=== PATIENT | female | born 1990 | race American Indian/Alaskan Native ===

== ENCOUNTER 2018-01-11 23:09 | Emergency (ER) | payer SELFPAY ==
[2018-01-11 23:46] VITALS: BP 133/86
[2018-01-12 00:57] LABS: Basophils % (Auto) 0.6 % (0.0-1.8); Eosinophils # (Auto) 0.1 K/mm3 (0.0-0.4); Eosinophils % (Auto) 1.1 % (0.0-4.3); Hematocrit 37.7 % (30.3-42.9); Hemoglobin 12.2 gm/dl (10.1-14.3); Lymphocytes # (Auto) 3.8 K/mm3 (1.2-5.4); Lymphocytes % (Auto) 52.9 % (13.4-35.0); Mean Corpuscular HGB Conc 32 % (30-34); Mean Corpuscular Hemoglobin 28 pg (28-32); Mean Corpuscular Volume 87 fl (79-97); Monocytes # (Auto) 0.5 K/mm3 (0.0-0.8); Monocytes % (Auto) 7.7 % (0.0-7.3); Platelet Count 288 K/mm3 (140-440); Red Blood Count 4.34 M/mm3 (3.65-5.03); Red Cell Distribution Width 13.4 % (13.2-15.2)
[2018-01-12 01:20] LABS: Alanine Aminotransferase 8 units/L (7-56); Albumin 3.9 g/dL (3.9-5); BUN/Creatinine Ratio 15; Blood Urea Nitrogen 9 mg/dL (7-17); Calcium 9.4 mg/dL (8.4-10.2); Hemolysis Index 2
[2018-01-12 02:52] LABS: Hyaline Casts,Urine 1 /LPF; Mucus,Urine FEW /HPF
[2018-01-12 02:53] LABS: Bilirubin,Urine NEG (Negative); Blood,Urine NEG (Negative); Color,Urine Yellow (Yellow); Protein,Urine <15 mg/dL mg/dL (Negative); Urobilinogen,Urine < 2.0 mg/dL (<2.0)
[2018-01-12 03:02] LABS: HCG Qualitative,Urine Negative (Negative)
--- NOTE | 2018-01-12 03:11 | Emergency Department Report ---
HPI - General Chief Complaint: Syncope Time Seen by Provider: 01/12/18 02:51 - HPI HPI: Room 22 The patient is a 27-year-old female presenting with a chief complaint of syncope. Patient states she's been dizzy all of her life but has never been given a diagnosis. The patient states this evening at 19:00 all washing dishes both her hands began shaking and she again felt dizzy and then had a syncopal episode. Patient denied ever having palpitations, chest pain or shortness of breath. Patient denies having headache. Patient denies previous episodes of syncope. Patient denies nausea vomiting or diarrhea. Patient denies fever. Patient denies any recent flights or long car trips. Patient is currently asymptomatic and states she feels normal Location: [See above] Duration: [See above] Quality: [See above] Severity: Moderate Modifying factors: [see above] Context: [see above] Mode of transportation: [not driving] ED Past Medical Hx - Past Medical History Previous Medical History?: No - Surgical History Past Surgical History?: No - Family History Family history: no significant - Social History Smoking Status: Never Smoker Substance Use Type: None (denies illicit drug use) - Medications Home Medications: Home Medications Medication Instructions Recorded Confirmed Last Taken Type Meclizine [Antivert] 25 mg PO TID PRN #20 tablet 01/12/18 Unknown Rx ED Review of Systems ROS: Stated complaint: PASSED OUT Other details as noted in HPI Constitutional: denies: fever Eyes: denies: eye pain ENT: denies: throat pain Respiratory: denies: shortness of breath Cardiovascular: denies: chest pain, palpitations Gastrointestinal: denies: abdominal pain, nausea, vomiting, diarrhea Genitourinary: denies: dysuria Musculoskeletal: denies: back pain Neurological: other (syncope). denies: headache Physical Exam - Physical Exam Vital Signs: Vital Signs 01/11/18 23:39 Temperature 98.9 F Pulse Rate 86 Respiratory 18 Rate Blood Pressure 133/86 O2 Sat by Pulse 98 Oximetry Physical Exam: GENERAL: The patient is well-developed well-nourished female lying on stretcher not appearing to be in acute distress. [] HEENT: Normocephalic. Atraumatic. Extraocular motions are intact. Patient has moist mucous membranes. NECK: Supple. No meningitic signs are noted. Trachea midline CHEST/LUNGS: Clear to auscultation. There is no respiratory distress noted. HEART/CARDIOVASCULAR: Regular. There is no tachycardia. There is no gallop rub or murmur. ABDOMEN: Abdomen is soft, nontender. Patient has normal bowel sounds. There is no abdominal distention. SKIN: There is no rash. There is no edema. There is no diaphoresis. NEURO: The patient is awake, alert, and oriented. The patient is cooperative. The patient has no focal neurologic deficits. The patient has normal speech. Cranial nerves II through XII grossly intact, no drift MUSCULOSKELETAL: There is no evidence of acute injury. ED Course Vital Signs 01/11/18 23:39 Temperature 98.9 F Pulse Rate 86 Respiratory 18 Rate Blood Pressure 133/86 O2 Sat by Pulse 98 Oximetry - Reevaluation(s) Reevaluation #1: 01/12/18 04:05 Patient remains asymptomatic currently. Updated on workup results ED Medical Decision Making - Lab Data Result diagrams: 01/12/18 00:04 01/12/18 00:04 Laboratory Tests 01/12/18 01/12/18 01/12/18 00:04 00:04 01:58 WBC 7.1 RBC 4.34 Hgb 12.2 Hct 37.7 MCV 87 MCH 28 MCHC 32 RDW 13.4 Plt Count 288 Lymph % (Auto) 52.9 H Falls % (Auto) 7.7 H Eos % (Auto) 1.1 Baso % (Auto) 0.6 Lymph # 3.8 Falls # 0.5 Eos # 0.1 Baso # 0.0 Seg Neutrophils % 37.7 L Seg Neutrophils # 2.7 D-Dimer Sodium 138 Potassium 4.0 Chloride 102.7 Carbon Dioxide 23 Anion Gap 16 BUN 9 Creatinine 0.6 L Estimated GFR > 60 BUN/Creatinine Ratio 15 Glucose 89 Calcium 9.4 Total Bilirubin < 0.20 AST 14 ALT 8 Alkaline Phosphatase 70 Total Creatine Kinase CK-MB (CK-2) CK-MB (CK-2) Rel Index Troponin T Total Protein 7.1 Albumin 3.9 Albumin/Globulin Ratio 1.2 Urine Color Yellow Urine Turbidity Clear Urine pH 6.0 Ur Specific [place] 1.027 Urine Protein <15 mg/dl Urine Glucose (UA) Neg Urine Ketones Neg Urine Blood Neg Urine Nitrite Neg Urine Bilirubin Neg Urine Urobilinogen < 2.0 Ur Leukocyte Esterase Neg Urine WBC (Auto) 1.0 Urine RBC (Auto) 2.0 U Epithel Cells (Auto) 1.0 Hyaline Casts 1 Urine Mucus Few Urine HCG, Qual Negative 01/12/18 01/12/18 03:03 03:03 WBC RBC Hgb Hct MCV MCH MCHC RDW Plt Count Lymph % (Auto) Falls % (Auto) Eos % (Auto) Baso % (Auto) Lymph # Falls # Eos # Baso # Seg Neutrophils % Seg Neutrophils # D-Dimer 227.42 Sodium Potassium Chloride Carbon Dioxide Anion Gap BUN Creatinine Estimated GFR BUN/Creatinine Ratio Glucose Calcium Total Bilirubin AST ALT Alkaline Phosphatase Total Creatine Kinase 87 CK-MB (CK-2) 1.2 CK-MB (CK-2) Rel Index 1.3 Troponin T < 0.010 Total Protein Albumin Albumin/Globulin Ratio Urine Color Urine Turbidity Urine pH Ur Specific [place] Urine Protein Urine Glucose (UA) Urine Ketones Urine Blood Urine Nitrite Urine Bilirubin Urine Urobilinogen Ur Leukocyte Esterase Urine WBC (Auto) Urine RBC (Auto) U Epithel Cells (Auto) Hyaline Casts Urine Mucus Urine HCG, Qual - EKG Data -: EKG Interpreted by Ri EKG shows normal: sinus rhythm Rate: normal - EKG Data When compared to previous EKG there are: previous EKG unavailable Interpretation: normal EKG - Radiology Data Radiology results: report reviewed (CT head) CT head (read by radiologist)-no acute intracranial abnormality - Differential Diagnosis vasovagal syncope, vertigo, PE, ACS, rhabdomyolysis, dysrhythmia Critical care attestation.: If time is entered above; I have spent that time in minutes in the direct care of this critically ill patient, excluding procedure time. ED Disposition Clinical Impression: Dizziness, Syncope Disposition: DC-01 TO HOME OR SELFCARE Is pt being admited?: No Does the pt Need Aspirin: No Condition: Stable Instructions: Syncope (ED), Vertigo (ED) Additional Instructions: Return to the emergency department immediately should you develop worsening symptoms, fever, inability to tolerate food or liquid or any other concerns. Prescriptions: Meclizine [Antivert] 25 mg PO TID PRN #20 tablet PRN Reason: Vertigo Referrals: BAKARI MELTON MD [Staff Physician] - [facility] (Dr. Melton is a neurologist. Please follow up with him for further evaluation) ERIC RINCON MD [Primary Care Provider] - [facility] (Dr. Rincon is a primary physician. Please follow up with him to be established as a patient) Time of Disposition: 04:08
[2018-01-12] MEDS ORDERED: ANTIVERT PO ONE (03:33)
[2018-01-12 03:37] LABS: Creatine Kinase MB 1.2 ng/mL (0.0-4.0)
--- NOTE | 2018-01-12 03:59 | Cat Scan Report ---
FINAL REPORT EXAM: CT HEAD/BRAIN WO CON HISTORY: syncope next TECHNIQUE: Routine axial imaging was obtained of the brain without IV contrast. FINDINGS: There is no evidence of acute stroke or hemorrhage. The ventricular system is appropriate in size and is symmetric. The visualized sinuses are clear. The mastoid air cells are well pneumatized. The calvarium appears intact IMPRESSION: No acute intracranial process.
== END 2018-01-12 04:39 | disposition home or self-care (01) ==
LOC: ED 23:09
DX: R55 Syncope and collapse (principal)
CPT/HCPCS: 36415; 70450; 80053; 81001; 81025; 82550; 82553; 84484; 85025; 85379; 93005; 93010; 99284

== ENCOUNTER 2019-10-05 10:55 | Emergency (ER) | payer SELFPAY ==
--- NOTE | 2019-10-05 14:48 | Emergency Department Report ---
ED Abdominal Pain HPI - General Chief Complaint: Abdominal Pain Stated Complaint: DIZZY/STOMACH CRAMPING Time Seen by Provider: 10/05/19 14:16 Source: patient Mode of arrival: Ambulatory Limitations: No Limitations - History of Present Illness Initial Comments: This is a 29-year-old Afro-British female who presents to the emergency room with abdominal cramping, vomiting, and headache intermittently for 2 weeks. Patient reports her last menstrual period was 08/03/2019, A0. Patient states she took a test on September 10 one this morning and both were negative. She also states her children have been seek impossibly caught something from them. Patient also reports some diarrhea this morning 2 times. She denies dizziness, dyspnea, chest pain, palpitations, shortness of breath, chills, weakness, urinary frequency, urgency, dysuria, or vaginal discharge. MD Complaint: abdominal pain Onset/Timin -: week(s) Location: diffuse Radiation: none Migration to: no migration Severity: mild Severity scale (0 -10): 3 Quality: cramping Consistency: intermittent Improves With: nothing Worsens With: nothing Context: sick contacts Associated Symptoms: nausea, vomiting, diarrhea, fever, chills. denies: constipation, dysuria, hematemesis, hematochezia, melena, hematuria, anorexia, syncope Treatments Prior to Arrival: NSAIDs - Related Data Previous Rx's Medication Instructions Recorded Last Taken Type Meclizine [Antivert] 25 mg PO TID PRN #20 tablet 01/12/18 Unknown Rx Ondansetron [Zofran Odt] 4 mg PO Q8HR PRN #20 tab.rapdis 10/05/19 Unknown Rx Allergies Allergy/AdvReac Type Severity Reaction Status Date / Time No Known Allergies Allergy Verified 10/05/19 10:58 ED Review of Systems ROS: Stated complaint: DIZZY/STOMACH CRAMPING Other details as noted in HPI Constitutional: chills. denies: fever ENT: denies: ear pain, throat pain Respiratory: denies: cough, shortness of breath, wheezing Cardiovascular: denies: chest pain, palpitations Gastrointestinal: abdominal pain, nausea, vomiting, diarrhea. denies: constipation, hematemesis, melena, hematochezia Genitourinary: denies: urgency, dysuria, discharge Musculoskeletal: denies: back pain, joint swelling, arthralgia Skin: denies: rash, lesions Neurological: denies: headache, weakness, paresthesias Psychiatric: denies: anxiety, depression ED Past Medical Hx - Past Medical History Previous Medical History?: No - Surgical History Past Surgical History?: No - Social History Smoking Status: Never Smoker - Medications Home Medications: Home Medications Medication Instructions Recorded Confirmed Last Taken Type Meclizine [Antivert] 25 mg PO TID PRN #20 tablet 01/12/18 Unknown Rx Ondansetron [Zofran Odt] 4 mg PO Q8HR PRN #20 tab.rapdis 10/05/19 Unknown Rx ED Physical Exam - General Limitations: No Limitations General appearance: alert, in no apparent distress, obese - ENT ENT exam: Present: mucous membranes moist, TM's normal bilaterally, normal external ear exam, other (turbinates mildly congested with clear discharge). Absent: normal orophraynx (erythematous posterior pharynx, uvula midline, no exudate) - Neck Neck exam: Present: normal inspection - Respiratory Respiratory exam: Present: normal lung sounds bilaterally. Absent: respiratory distress - Cardiovascular Cardiovascular Exam: Present: regular rate, normal rhythm. Absent: systolic murmur, diastolic murmur, rubs, gallop - GI/Abdominal GI/Abdominal exam: Present: soft, normal bowel sounds. Absent: distended, tenderness, guarding, rebound, rigid, organomegaly - Back Exam Back exam: Absent: CVA tenderness (R), CVA tenderness (L) - Neurological Exam Neurological exam: Present: alert, oriented X3, normal gait - Psychiatric Psychiatric exam: Present: normal affect, normal mood - Skin Skin exam: Present: warm, dry, intact, normal color. Absent: rash ED Course Vital Signs 10/05/19 10/05/19 11:03 16:49 Temperature 100.4 F H 99.0 F Pulse Rate 111 H 79 Respiratory 20 15 Rate Blood Pressure 138/86 Blood Pressure 139/74 [Right] O2 Sat by Pulse 98 97 Oximetry ED Medical Decision Making - Lab Data Result diagrams: 10/05/19 15:13 10/05/19 15:13 Lab Results 10/05/19 10/05/19 10/05/19 Range/Units 15:13 15:13 15:13 WBC 4.0 L (4.5-11.0) K/mm3 RBC 4.49 (3.65-5.03) M/mm3 Hgb 13.1 (10.1-14.3) gm/dl Hct 39.2 (30.3-42.9) % MCV 87 (79-97) fl MCH 29 (28-32) pg MCHC 34 (30-34) % RDW 13.3 (13.2-15.2) % Plt Count 253 (140-440) K/mm3 [place] % (Auto) C[employer] Operator Sodium 137 (137-145) mmol/L Potassium 3.7 (3.6-5.0) mmol/L Chloride 102.9 (98-107) mmol/L Carbon Dioxide 23 (22-30) mmol/L Anion Gap 15 mmol/L BUN 8 (7-17) mg/dL Creatinine 0.6 L (0.7-1.2) mg/dL Estimated GFR > 60 ml/min BUN/Creatinine Ratio 13 % Glucose 113 H (65-100) mg/dL Calcium 9.4 (8.4-10.2) mg/dL Total Bilirubin 0.20 (0.1-1.2) mg/dL AST 15 (5-40) units/L ALT 10 (7-56) units/L Alkaline Phosphatase 61 (35-129) units/L Total Protein 8.0 (6.3-8.2) g/dL Albumin 4.4 (3.9-5) g/dL Albumin/Globulin Ratio 1.2 % HCG, Qual Negative (Negative) - Medical Decision Making This is a 29 y.o. female accompanied that presents with diffuse abdominal pain, nausea, vomiting, and diarrhea for 2 weeks. Patient is stable and was examined by me. Obtained CMP, CBC, urine test, & UA. Mild leukocytosis, All other labs unremarkable. Abdomen nontender on palpation. Given anti-emetics each improved vomiting. The cause of the patients symptoms is not clear, but may be due to either food poisoning or viral gastrointestinal infection. How ever, there does not appear to be an emergent cause of the symptoms, including, but not limited to, small bowel obstruction, coronary syndrome, bowel ischemia, pancreatitis, sepsis/serious bacterial illness, or other acute abdomen. Less likely UTI, GERD causing this presentation. The patient is feeling much better, tolerating PO fluids, and shows no signs of dehydration. Start zofran. Discussed plan with patient who both agree with ER plan. No further questions noted by the patient. Discharged home in stable condition. Follow up with primary care doctor in 2-3 days or return to the emergency room with worsening symptoms. Critical care attestation.: If time is entered above; I have spent that time in minutes in the direct care of this critically ill patient, excluding procedure time. ED Disposition Clinical Impression: Gastroenteritis, Nausea vomiting and diarrhea, Viral syndrome Disposition: DC- TO HOME OR SELFCARE Is pt being admited?: No Condition: Stable Instructions: Gastroenteritis (ED), Acute Nausea and Vomiting (ED), Abdominal Pain (ED) Additional Instructions: Frequent hand washing is important to reduce spread. Prompt disinfection of contaminated surfaces with household chlorine bleach- based butter melter and washing of soiled clothing and bedding should be advised. If food or water is thought to be contaminated, it should be avoided. Increase fluid intake. Drinks high in sugars such as carbonated soft drinks, fruit juice, and highly sugared liquids should be avoided. Prescriptions: Ondansetron [Zofran Odt] 4 mg PO Q8HR PRN #20 tab.rapdis PRN Reason: Nausea And Vomiting Referrals: [facility] [Outside] - 3-5 Days [facility] [Outside] - 3-5 Days [facility] [Outside] - 3-5 Days FARA ROBLEDO MD [Staff Physician] - 3-5 Days JOHN CROW DO [Staff Physician] - 3-5 Days Forms: Work/School Release Form(ED) Time of Disposition: 16:28
[2019-10-05] MEDS ORDERED: ONDANSETRON 4 MG ODT TAB PO ONE (15:13)
[2019-10-05 15:22] LABS: Hematocrit 39.2 % (30.3-42.9); Hemoglobin 13.1 gm/dl (10.1-14.3); Mean Corpuscular HGB Conc 34 % (30-34); Mean Corpuscular Volume 87 fl (79-97); Platelet Count 253 K/mm3 (140-440); Red Blood Count 4.49 M/mm3 (3.65-5.03); Red Cell Distribution Width 13.3 % (13.2-15.2)
[2019-10-05 15:40] LABS: Alanine Aminotransferase 10 units/L (7-56); Albumin 4.4 g/dL (3.9-5); BUN/Creatinine Ratio 13; Blood Urea Nitrogen 8 mg/dL (7-17); Calcium 9.4 mg/dL (8.4-10.2); Hemolysis Index 5
[2019-10-05 16:44] LABS: Bilirubin,Urine NEG (Negative); Blood,Urine NEG (Negative); Color,Urine Yellow (Yellow); Protein,Urine <15 mg/dL mg/dL (Negative); Urobilinogen,Urine < 2.0 mg/dL (<2.0)
[2019-10-05 16:50] VITALS: BP 139/74
[2019-10-05 16:50] LABS: Mucus,Urine Few /HPF
[2019-10-05 20:01] LABS: Basophils % (Manual) 0 % (0.0-1.8); Eosinophils % (Manual) 0 % (0.0-4.3); Total Cells Counted 100
[2019-10-05 20:02] LABS: Anisocytosis Few; Ovalocytes Few; Platelet Estimate Consistent w Auto
== END 2019-10-05 18:12 | disposition home or self-care (01) ==
LOC: ED 10:55
DX: K52.9 Noninfective gastroenteritis and colitis, unspecified (principal); B34.9 Viral infection, unspecified; Z79.899 Other long term (current) drug therapy
CPT/HCPCS: 36415; 80053; 81001; 84703; 85007; 85025; 87086; Q0162

== ENCOUNTER 2020-10-12 14:56 | Emergency (ER) | payer SELFPAY ==
[2020-10-12 16:05] VITALS: BP 129/76
[2020-10-12] MEDS ORDERED: dexAMETHasone 20 MG/5 ML VIAL IM ONE (16:29)
[2020-10-12] MEDS ORDERED: FAMOTIDINE 20 MG TAB PO ONE (16:29)
[2020-10-12] MEDS ORDERED: CETIRIZINE 10 MG TAB PO ONE (16:30)
--- NOTE | 2020-10-12 16:34 | Emergency Department Report ---
ED Rash HPI - HPI Chief Complaint: Skin Rash Stated Complaint: ALLERGIC REACTION Time Seen by Provider: 10/12/20 16:26 Duration: 1 Day Rash Symptoms: Yes Itching, No Facial Swelling, No Tongue/Oral Swelling, No Breathing Difficulties, No Choking Sensation, No Wheezing/Dyspnea, No Peeling, No Blistering, No Fever Severity: moderate Other History: 30-year-old -Lao female presents to the emergency room for the second day of the rash that is all over her body and itches. Patient denies any new foods denies any new detergents soaps lotions. Patient only can recall going to [employer] in [facility] yesterday and not sure if she had touched something that has caused her allergic reaction. Patient denies any shortness of breath denies any wheezing denies any feeling of her throat is closing denies any headache. ED Review of Systems ROS: Stated complaint: ALLERGIC REACTION Other details as noted in HPI Comment: All other systems reviewed and negative ED Past Medical Hx - Past Medical History Previous Medical History?: No - Surgical History Past Surgical History?: No - Social History Smoking Status: Never Smoker Substance Use Type: None - Medications Home Medications: Home Medications Medication Instructions Recorded Confirmed Last Taken Type Meclizine [Antivert] 25 mg PO TID PRN #20 tablet 01/12/18 Unknown Rx Ondansetron [Zofran Odt] 4 mg PO Q8HR PRN #20 tab.rapdis 10/05/19 Unknown Rx Cetirizine HCl [Zyrtec 10mg tab] 10 mg PO QDAY #20 tablet 10/12/20 Unknown Rx Famotidine [Pepcid] 20 mg PO BID 5 Days #10 tablet 10/12/20 Unknown Rx predniSONE [Deltasone] 20 mg PO QDAY 5 Days #5 tab 10/12/20 Unknown Rx Rash Exam - Exam General: Vital signs noted. No distress. Alert and acting appropriately. HEENT: No Periorbital Edema, No Conjuctival Injection, No Chemosis, No Perioral Edema, No Tongue Edema, No Uvular Edema, No Compromised Airway, No Drooling Lungs: Yes Good Air Exchange (Normal Breath Sounds), No Wheezes, No Ronchi, No Stridor, No Cough, No Labored Respirations, No Retractions, No Use of Accessory Muscles, No Other Abnormal Lung Sounds Skin: Yes Urticarial Rash Other: Positive: Abdomen Normal, Neurologic Normal, Musculoskeletal Normal ED Course Vital Signs 10/12/20 16:03 Temperature 98.8 F Pulse Rate 98 H Respiratory 18 Rate Blood Pressure 129/76 O2 Sat by Pulse 100 Oximetry ED Medical Decision Making - Medical Decision Making 30-year-old -Lao female presents to the emergency room for the second day of the rash that is all over her body and itches. Patient denies any new foods denies any new detergents soaps lotions. Patient only can recall going to [employer] in [facility] yesterday and not sure if she had touched something that has caused her allergic reaction. Patient denies any shortness of breath denies any wheezing denies any feeling of her throat is closing denies any headache. Dexamethasone 10 mg IM, Zyrtec 10 mg p.o. and Pepcid 20 mg p.o. Patient is driving and not able to take the Benadryl. Patient be discharged home on prednisone Zyrtec's and Pepcid. Critical care attestation.: If time is entered above; I have spent that time in minutes in the direct care of this critically ill patient, excluding procedure time. ED Disposition Clinical Impression: Urticaria Allergic reaction Qualifiers: Encounter type: initial encounter Qualified Code(s): T78.40XA - Allergy, unspecified, initial encounter Disposition: TO HOME OR SELFCARE Is pt being admited?: No Does the pt Need Aspirin: No Condition: Stable Instructions: Hives, [id number] Additional Instructions: Take medication as prescribed. 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
== END 2020-10-12 17:20 | disposition home or self-care (01) ==
LOC: ED 14:56
DX: T78.49XA Other allergy, initial encounter (principal); L50.9 Urticaria, unspecified; Z79.899 Other long term (current) drug therapy; Y93.89 Activity, other specified
CPT/HCPCS: 96372; 99282; J1100

== ENCOUNTER 2021-06-06 13:03 | Outpatient (CLI) | payer MEDICAID, OTHER ==
[2021-06-06 14:51] VITALS: BP 121/66
== END 2021-06-06 15:00 | disposition home or self-care (01) ==
LOC: EDSTATUS 14:03 → TRG 14:08 → APU 14:09 → TRG 15:00
DX: Z34.93 Encounter for supervision of normal pregnancy, unspecified, third trimester (principal); Z3A.32 32 weeks gestation of pregnancy
CPT/HCPCS: 59025

== ENCOUNTER 2021-07-15 14:50 | Outpatient (CLI) | payer MEDICAID ==
[2021-07-15] MEDS ORDERED: LACTATED RINGERS 1,000 ML IV ONE (15:21)
[2021-07-15 15:50] LABS: Bilirubin,Urine NEG (Negative); Blood,Urine NEG (Negative); Color,Urine Yellow (Yellow); Mucus,Urine 3+ /HPF; Urobilinogen,Urine < 2.0 mg/dL (<2.0)
[2021-07-15 16:56] LABS: Hematocrit 32.4 % (30.3-42.9); Hemoglobin 10.8 gm/dl (10.1-14.3); Mean Corpuscular HGB Conc 33 % (30-34); Mean Corpuscular Volume 84 fl (79-97); Platelet Count 256 K/mm3 (140-440); Red Blood Count 3.87 M/mm3 (3.65-5.03); Red Cell Distribution Width 13.4 % (13.2-15.2)
[2021-07-15 17:20] LABS: Alanine Aminotransferase 10 units/L (7-56); Uric Acid 4.4 mg/dL (3.5-7.6)
[2021-07-15 17:43] VITALS: BP 130/90
== END 2021-07-15 18:00 | disposition home or self-care (01) ==
LOC: APU 14:50 → TRG 14:50
PROVIDERS: ATTEND Obstetrics & Gynecology
DX: Z34.93 Encounter for supervision of normal pregnancy, unspecified, third trimester (principal); Z3A.36 36 weeks gestation of pregnancy
CPT/HCPCS: 36415; 59025; 81001; 82565; 83615; 84450; 84460; 84550; 85027

== ENCOUNTER 2021-07-18 20:42 | Inpatient (IN) | payer MEDICAID ==
[2021-07-18] MEDS ORDERED: LACTATED RINGERS 1,000 ML ONE (22:01)
[2021-07-18] MEDS ORDERED: miSOPROStol 200 MCG TAB PR PRN (22:54)
[2021-07-18] MEDS ORDERED: CARBOPROST TROMETHAMINE 250 MCG/1 ML INJ IM PRN (22:54)
[2021-07-18] MEDS ORDERED: LOPERAMIDE 2 MG CAP PO PRN (22:54)
[2021-07-18] MEDS ORDERED: METHYLERGONOVINE MALEATE 0.2 MG/ML VIAL IM PRN (22:54)
[2021-07-18] MEDS ORDERED: MINERAL OIL 30 ML ORAL LIQD PO PRN (22:54)
[2021-07-18] MEDS ORDERED: fentaNYL 100 MCG/2 ML INJ IV PRN (22:54)
[2021-07-18] MEDS ORDERED: LIDOCAINE (2%) 20 MG/1 ML VIAL 20 ML MDV INFILTRATI ONE (22:54)
[2021-07-18] MEDS ORDERED: ACETAMINOPHEN 325 MG TAB PO PRN (22:54)
[2021-07-18] MEDS ORDERED: TERBUTALINE 1 MG/1 ML INJ SUB-Q PRN (22:54)
[2021-07-18] MEDS ORDERED: ePHEDrine SULFATE 50 MG/1 ML INJ IV PRN (22:54)
[2021-07-18] MEDS ORDERED: BUTORPHANOL 2 MG/1 ML INJ IV PRN (22:54)
[2021-07-18] MEDS ORDERED: OXYTOCIN 10 UNIT/1 ML INJ IM PRN (22:54)
[2021-07-18] MEDS ORDERED: OXYTOCIN DRIP 30 UNITS/500 ML BAG IV SCH ×2 (23:00)
[2021-07-18 23:17] LABS: Basophils % (Auto) 0.3 % (0.0-1.8); Eosinophils % (Auto) 0.6 % (0.0-4.3); Hematocrit 32.3 % (30.3-42.9); Hemoglobin 10.6 gm/dl (10.1-14.3); Lymphocytes # (Auto) 2.4 K/mm3 (1.2-5.4); Mean Corpuscular HGB Conc 33 % (30-34); Mean Corpuscular Volume 85 fl (79-97); Monocytes # (Auto) 0.7 K/mm3 (0.0-0.8); Monocytes % (Auto) 9.2 % (0.0-7.3); Platelet Count 279 K/mm3 (140-440); Red Blood Count 3.81 M/mm3 (3.65-5.03); Red Cell Distribution Width 13.6 % (13.2-15.2)
--- NOTE | 2021-07-18 23:22 | History and Physical Report ---
History of Present Illness Date of examination: 07/18/21 Date of admission: 07/18/2021 Chief complaint: Here for scheduled induction of labor. History of present illness: 31 year old female here for scheduled induction of labor due to elevated blood pressures/mild preeclampsia. Patient received care at [facility] office and records are available. LMP 11/18/20. EDC 08/08/21 (by US). . significant for the following: obesity, UTI, mild preeclampsia. labs are as follows: O+, antibody screen negative, rubella immune, hepatitis B surface antigen negative, HIV negative, RPR nonreactive, hemoglobin electrophoresis negative, varicella immune, NIPS low risk, 1 hour sugar test 108, GBS unknown. Past History Past Medical History: other (obesity) Past Surgical History: no surgical history [employer] History: denies: chlamydia, gonorrhea, hepatitis B, hepatitis C, herpes, HIV, syphilis, trichomonas Family/Genetic History: diabetes, hypertension, cancer Social history: , lives with family, full code. denies: smoking, alcohol abuse, prescription drug abuse, IV drug use - Obstetrical History Expected Date of Delivery: 08/08/21 Actual Gestation: 37 Week(s) 1 Day(s) : 3 Para: 2 Hx # Term Pregnancies: 1 Number of Pregnancies: 1 Spontaneous Abortions: 0 Induced : 0 Number of Living Children: 2 Medications and Allergies Allergies Allergy/AdvReac Type Severity Reaction Status Date / Time No Known Allergies Allergy Verified 07/18/21 21:34 Home Medications Medication Instructions Recorded Confirmed Last Taken Type Meclizine [Antivert] 25 mg PO TID PRN #20 tablet 01/12/18 Unknown Rx Ondansetron [Zofran Odt] 4 mg PO Q8HR PRN #20 tab.rapdis 10/05/19 Unknown Rx Cetirizine HCl [Zyrtec 10mg tab] 10 mg PO QDAY #20 tablet 10/12/20 Unknown Rx Famotidine [Pepcid] 20 mg PO BID 5 Days #10 tablet 10/12/20 Unknown Rx predniSONE [Deltasone] 20 mg PO QDAY 5 Days #5 tab 10/12/20 Unknown Rx Active Meds: Active Medications Acetaminophen (Acetaminophen 325 Mg Tab) 650 mg PO Q4H PRN PRN Reason: Pain, Mild (1-3) Butorphanol Tartrate (Butorphanol 2 Mg/1 Ml Inj) 1 mg IV Q2H PRN PRN Reason: Pain, Moderate(4-6) LABOR PAIN Carboprost Tromethamine (Carboprost Tromethamine 250 Mcg/1 Ml Inj) 250 mcg IM ONCE PRN PRN Reason: Uterine Bleeding Ephedrine Sulfate (Ephedrine Sulfate 50 Mg/1 Ml Inj) 10 mg IV Q2M PRN PRN Reason: Hypotension Fentanyl (Fentanyl 100 Mcg/2 Ml Inj) 100 mcg IV Q2H PRN PRN Reason: Pain,Severe (7-10) LABOR PAIN Oxytocin/Sodium Chloride (Pitocin/Ns 30 Unit/500ml) 30 units in 500 mls @ 2 mls/hr IV TITR MARIANELA; Protocol Lactated Ringer's (Lactated Ringers) 1,000 mls @ 125 mls/hr IV DIRECT MARIANELA Oxytocin/Sodium Chloride (Pitocin/Ns 30 Unit/500ml) 30 units in 500 mls @ 40 mls/hr IV TITR MARIANELA; Protocol Lidocaine (Lidocaine (2%) 20 Mg/1 Ml Vial 20 Ml Mdv) 20 ml INFILTRATI ONCE ONE Stop: 07/18/21 22:55 Loperamide HCl (Loperamide 2 Mg Cap) 2 mg PO ONCE PRN PRN Reason: give with Hemabate Methylergonovine Maleate (Methylergonovine Maleate 0.2 Mg/Ml Vial) 0.2 mg IM ONCE PRN PRN Reason: Uterine Bleeding Mineral Oil (Mineral Oil 30 Ml Oral Liqd) 30 ml PO QHS PRN PRN Reason: Constipation Misoprostol (Misoprostol 200 Mcg Tab) 800 mcg NH ONCE PRN PRN Reason: Uterine Bleeding Oxytocin (Oxytocin 10 Unit/1 Ml Inj) 10 unit IM ONCE PRN PRN Reason: Uterine Bleeding Terbutaline Sulfate (Terbutaline 1 Mg/1 Ml Inj) 0.25 mg SUB-Q ONCE PRN PRN Reason: Hyperstimulation/Hypertonicity Review of Systems All systems: negative (occasional contraction) - Vital Signs Vital signs: Vital Signs Pulse BP 107 H 140/91 07/18/21 21:06 07/18/21 21:06 Temp Pulse Resp BP Pulse Ox 112 H 137/85 98 07/18/21 23:10 07/18/21 23:07 07/18/21 23:10 - Physical Exam Abdomen: Positive: normal appearance, soft. Negative: distention, tenderness, guarding, rigidity Genitourinary (Female): Positive: normal external genitalia, normal perenium. Negative: perineal/vulvar lesions Vagina: Positive: normal moisture Uterus: Positive: enlarged. Negative: tender Anus/Rectum: Positive: normal perianal skin Extremities: Negative: tenderness, edema - Obstetrical FHR: category 1 Uterine Contraction Monitor Mode: External Cervical Dilatation: 1.5 Cervical Effacement Percentage: 40 station: -3 Uterine Contraction Pattern: Irregular Uterine Contraction Intensity: Mild Results Result Diagrams: 07/18/21 22:20 07/18/21 22:20 All other labs normal. Assessment and Plan A: at 37 weeks gestation. Mild preeclampsia. Obesity. GBS unknown. P: Admit. Continuous EFM. Monitor BPs. Pitocin induction of labor. Preeclamptic labs. GBS prophylaxis.
[2021-07-18 23:30] LABS: Alanine Aminotransferase 11 units/L (7-56); Albumin 3.6 g/dL (3.9-5); Blood Urea Nitrogen 5 mg/dL (7-17); Calcium 8.8 mg/dL (8.4-10.2); Hemolysis Index 6
[2021-07-18 23:43] LABS: BUN/Creatinine Ratio 10
[2021-07-19 02:09] LABS: Uric Acid 4.5 mg/dL (3.5-7.6)
--- NOTE | 2021-07-19 10:28 | Progress Note ---
Assessment and Plan - Patient Problems (1) Preeclampsia Current Visit: Yes Status: Acute Plan to address problem: Continue with induction of labor for preeclampsia at term. --PIH labs within normal limit --Proceed with Pitocin for induction of labor --Anticipate Subjective - Subjective Date of service: 07/19/21 Principal diagnosis: IOL for preeclampsia Interval history: Patient reports she is feeling well and understands the indication for induction of labor for preeclampsia. Patient reports: movement normal, contractions (intermittent) Objective - Vital Signs Vital Signs: Vital Signs - 12hr 07/18/21 07/18/21 07/18/21 22:30 22:35 22:37 Temperature Pulse Rate 92 H 107 H 113 H Respiratory Rate Blood Pressure 137/90 O2 Sat by Pulse 99 99 Oximetry O2 Sat by Pulse Oximetry [ Bilateral Throughout] 07/18/21 07/18/21 07/18/21 22:40 22:45 22:50 Temperature Pulse Rate 111 H 110 H 116 H Respiratory Rate Blood Pressure O2 Sat by Pulse 99 99 98 Oximetry O2 Sat by Pulse Oximetry [ Bilateral Throughout] 07/18/21 07/18/21 07/18/21 22:52 22:55 23:00 Temperature Pulse Rate 109 H 119 H 112 H Respiratory Rate Blood Pressure 145/89 O2 Sat by Pulse 98 98 Oximetry O2 Sat by Pulse Oximetry [ Bilateral Throughout] 07/18/21 07/18/21 07/18/21 23:05 23:07 23:10 Temperature Pulse Rate 108 H 104 H 112 H Respiratory Rate Blood Pressure 137/85 O2 Sat by Pulse 98 98 Oximetry O2 Sat by Pulse Oximetry [ Bilateral Throughout] 07/18/21 07/18/21 07/18/21 23:15 23:20 23:23 Temperature Pulse Rate 104 H 111 H 100 H Respiratory Rate Blood Pressure 139/81 O2 Sat by Pulse 98 99 Oximetry O2 Sat by Pulse Oximetry [ Bilateral Throughout] 07/18/21 07/18/21 07/18/21 23:25 23:30 23:35 Temperature Pulse Rate 110 H 107 H 103 H Respiratory Rate Blood Pressure O2 Sat by Pulse 99 98 98 Oximetry O2 Sat by Pulse Oximetry [ Bilateral Throughout] 07/18/21 07/18/21 07/18/21 23:37 23:40 23:45 Temperature Pulse Rate 98 H 103 H 98 H Respiratory Rate Blood Pressure 127/76 O2 Sat by Pulse 98 99 Oximetry O2 Sat by Pulse Oximetry [ Bilateral Throughout] 07/18/21 07/18/21 07/18/21 23:50 23:52 23:55 Temperature Pulse Rate 96 H 93 H 106 H Respiratory Rate Blood Pressure 134/77 O2 Sat by Pulse 98 99 Oximetry O2 Sat by Pulse Oximetry [ Bilateral Throughout] 07/19/21 07/19/21 07/19/21 00:00 00:05 00:08 Temperature Pulse Rate 94 H 97 H 93 H Respiratory Rate Blood Pressure 133/74 O2 Sat by Pulse 99 99 Oximetry O2 Sat by Pulse Oximetry [ Bilateral Throughout] 07/19/21 07/19/21 07/19/21 00:10 00:15 00:25 Temperature Pulse Rate 100 H 94 H 101 H Respiratory Rate Blood Pressure O2 Sat by Pulse 98 99 97 Oximetry O2 Sat by Pulse Oximetry [ Bilateral Throughout] 07/19/21 07/19/21 07/19/21 00:30 00:35 00:37 Temperature Pulse Rate 96 H 92 H 89 Respiratory Rate Blood Pressure 135/79 O2 Sat by Pulse 99 98 Oximetry O2 Sat by Pulse Oximetry [ Bilateral Throughout] 07/19/21 07/19/21 07/19/21 00:40 00:42 00:45 Temperature Pulse Rate 90 87 Respiratory Rate Blood Pressure O2 Sat by Pulse 98 99 Oximetry O2 Sat by Pulse 99 Oximetry [ Bilateral Throughout] 07/19/21 07/19/21 07/19/21 00:50 00:54 00:55 Temperature Pulse Rate 87 85 98 H Respiratory Rate Blood Pressure 135/76 O2 Sat by Pulse 98 99 Oximetry O2 Sat by Pulse Oximetry [ Bilateral Throughout] 07/19/21 07/19/21 07/19/21 01:00 01:05 01:07 Temperature Pulse Rate 100 H 92 H 96 H Respiratory Rate Blood Pressure 135/79 O2 Sat by Pulse 98 99 Oximetry O2 Sat by Pulse Oximetry [ Bilateral Throughout] 07/19/21 07/19/21 07/19/21 01:10 01:15 01:20 Temperature Pulse Rate 94 H 95 H 95 H Respiratory Rate Blood Pressure O2 Sat by Pulse 100 98 99 Oximetry O2 Sat by Pulse Oximetry [ Bilateral Throughout] 07/19/21 07/19/21 07/19/21 01:23 01:25 01:30 Temperature Pulse Rate 94 H 92 H 94 H Respiratory Rate Blood Pressure 131/82 O2 Sat by Pulse 98 98 Oximetry O2 Sat by Pulse Oximetry [ Bilateral Throughout] 07/19/21 07/19/21 07/19/21 01:35 01:37 01:40 Temperature Pulse Rate 92 H 91 H 93 H Respiratory Rate Blood Pressure 131/78 O2 Sat by Pulse 99 99 Oximetry O2 Sat by Pulse Oximetry [ Bilateral Throughout] 07/19/21 07/19/21 07/19/21 01:45 01:50 01:53 Temperature Pulse Rate 92 H 95 H 94 H Respiratory Rate Blood Pressure 132/77 O2 Sat by Pulse 98 100 Oximetry O2 Sat by Pulse Oximetry [ Bilateral Throughout] 07/19/21 07/19/21 07/19/21 01:55 02:00 02:08 Temperature Pulse Rate 88 100 H 98 H Respiratory Rate Blood Pressure 139/88 O2 Sat by Pulse 99 100 100 Oximetry O2 Sat by Pulse Oximetry [ Bilateral Throughout] 07/19/21 07/19/21 07/19/21 02:13 02:18 02:22 Temperature Pulse Rate 94 H 88 87 Respiratory Rate Blood Pressure 138/90 O2 Sat by Pulse 99 99 Oximetry O2 Sat by Pulse Oximetry [ Bilateral Throughout] 07/19/21 07/19/21 07/19/21 02:23 02:28 02:33 Temperature Pulse Rate 86 87 88 Respiratory Rate Blood Pressure O2 Sat by Pulse 99 99 99 Oximetry O2 Sat by Pulse Oximetry [ Bilateral Throughout] 07/19/21 07/19/21 07/19/21 02:38 02:43 02:48 Temperature Pulse Rate 88 91 H 91 H Respiratory Rate Blood Pressure 135/73 O2 Sat by Pulse 99 98 98 Oximetry O2 Sat by Pulse Oximetry [ Bilateral Throughout] 07/19/21 07/19/21 07/19/21 02:52 02:53 02:58 Temperature Pulse Rate 88 89 90 Respiratory Rate Blood Pressure 133/69 O2 Sat by Pulse 98 99 Oximetry O2 Sat by Pulse Oximetry [ Bilateral Throughout] 07/19/21 07/19/21 07/19/21 03:03 03:08 03:17 Temperature Pulse Rate 93 H 86 105 H Respiratory Rate Blood Pressure 128/76 O2 Sat by Pulse 99 98 99 Oximetry O2 Sat by Pulse Oximetry [ Bilateral Throughout] 07/19/21 07/19/21 07/19/21 03:22 03:23 03:27 Temperature Pulse Rate 111 H 96 H 93 H Respiratory Rate Blood Pressure 146/91 O2 Sat by Pulse 99 98 Oximetry O2 Sat by Pulse Oximetry [ Bilateral Throughout] 07/19/21 07/19/21 07/19/21 03:32 03:37 03:38 Temperature Pulse Rate 93 H 100 H 90 Respiratory Rate Blood Pressure 131/79 O2 Sat by Pulse 98 100 Oximetry O2 Sat by Pulse Oximetry [ Bilateral Throughout] 07/19/21 07/19/21 07/19/21 03:42 03:47 03:52 Temperature Pulse Rate 87 89 89 Respiratory Rate Blood Pressure O2 Sat by Pulse 99 99 98 Oximetry O2 Sat by Pulse Oximetry [ Bilateral Throughout] 07/19/21 07/19/21 07/19/21 03:53 03:57 04:02 Temperature Pulse Rate 90 87 87 Respiratory Rate Blood Pressure 137/84 O2 Sat by Pulse 98 99 Oximetry O2 Sat by Pulse Oximetry [ Bilateral Throughout] 07/19/21 07/19/21 07/19/21 04:07 04:08 04:12 Temperature Pulse Rate 82 90 88 Respiratory Rate Blood Pressure 120/69 O2 Sat by Pulse 99 99 Oximetry O2 Sat by Pulse Oximetry [ Bilateral Throughout] 07/19/21 07/19/21 07/19/21 04:17 04:22 04:24 Temperature Pulse Rate 87 85 90 Respiratory Rate Blood Pressure 127/87 O2 Sat by Pulse 100 100 Oximetry O2 Sat by Pulse Oximetry [ Bilateral Throughout] 07/19/21 07/19/21 07/19/21 04:27 04:32 04:37 Temperature Pulse Rate 91 H 90 92 H Respiratory Rate Blood Pressure O2 Sat by Pulse 100 100 100 Oximetry O2 Sat by Pulse Oximetry [ Bilateral Throughout] 07/19/21 07/19/21 07/19/21 04:38 04:42 04:47 Temperature Pulse Rate 93 H 94 H 97 H Respiratory Rate Blood Pressure 123/83 O2 Sat by Pulse 98 100 Oximetry O2 Sat by Pulse Oximetry [ Bilateral Throughout] 07/19/21 07/19/21 07/19/21 04:52 04:57 05:02 Temperature Pulse Rate 100 H 95 H 96 H Respiratory Rate Blood Pressure 126/82 O2 Sat by Pulse 99 100 100 Oximetry O2 Sat by Pulse Oximetry [ Bilateral Throughout] 07/19/21 07/19/21 07/19/21 05:07 05:12 05:17 Temperature Pulse Rate 92 H 95 H 101 H Respiratory Rate Blood Pressure 124/91 O2 Sat by Pulse 100 100 100 Oximetry O2 Sat by Pulse Oximetry [ Bilateral Throughout] 07/19/21 07/19/21 07/19/21 05:22 05:27 05:32 Temperature Pulse Rate 100 H 94 H 95 H Respiratory Rate Blood Pressure 127/87 O2 Sat by Pulse 99 100 100 Oximetry O2 Sat by Pulse Oximetry [ Bilateral Throughout] 07/19/21 07/19/21 07/19/21 05:37 05:42 05:53 Temperature Pulse Rate 90 109 H 111 H Respiratory Rate Blood Pressure 132/84 O2 Sat by Pulse 98 100 98 Oximetry O2 Sat by Pulse Oximetry [ Bilateral Throughout] 07/19/21 07/19/21 07/19/21 05:58 06:01 06:03 Temperature Pulse Rate 100 H 91 H 100 H Respiratory Rate Blood Pressure 135/72 O2 Sat by Pulse 99 94 98 Oximetry O2 Sat by Pulse Oximetry [ Bilateral Throughout] 07/19/21 07/19/21 07/19/21 06:08 06:13 06:18 Temperature Pulse Rate 98 H 92 H 95 H Respiratory Rate Blood Pressure O2 Sat by Pulse 97 98 98 Oximetry O2 Sat by Pulse Oximetry [ Bilateral Throughout] 07/19/21 07/19/21 07/19/21 06:23 06:28 06:32 Temperature Pulse Rate 96 H 95 H 97 H Respiratory Rate Blood Pressure 134/84 O2 Sat by Pulse 98 97 Oximetry O2 Sat by Pulse Oximetry [ Bilateral Throughout] 07/19/21 07/19/21 07/19/21 06:33 06:38 06:43 Temperature Pulse Rate 92 H 94 H 92 H Respiratory Rate Blood Pressure O2 Sat by Pulse 98 98 98 Oximetry O2 Sat by Pulse Oximetry [ Bilateral Throughout] 07/19/21 07/19/21 07/19/21 06:48 06:53 06:58 Temperature Pulse Rate 97 H 99 H 93 H Respiratory Rate Blood Pressure O2 Sat by Pulse 99 99 97 Oximetry O2 Sat by Pulse Oximetry [ Bilateral Throughout] 07/19/21 07/19/21 07/19/21 07:01 07:03 07:08 Temperature Pulse Rate 90 94 H 89 Respiratory Rate Blood Pressure 122/71 O2 Sat by Pulse 98 98 Oximetry O2 Sat by Pulse Oximetry [ Bilateral Throughout] 07/19/21 07/19/21 07/19/21 07:12 07:13 07:18 Temperature Pulse Rate 90 91 H 99 H Respiratory Rate Blood Pressure O2 Sat by Pulse 93 98 98 Oximetry O2 Sat by Pulse Oximetry [ Bilateral Throughout] 07/19/21 07/19/21 07/19/21 07:23 07:24 07:26 Temperature 98.4 F Pulse Rate 101 H Respiratory 18 Rate Blood Pressure O2 Sat by Pulse 99 98 Oximetry O2 Sat by Pulse 98 Oximetry [ Bilateral Throughout] 07/19/21 07/19/21 07/19/21 07:28 07:32 07:33 Temperature Pulse Rate 98 H 89 96 H Respiratory Rate Blood Pressure 125/69 O2 Sat by Pulse 99 99 Oximetry O2 Sat by Pulse Oximetry [ Bilateral Throughout] 07/19/21 07/19/21 07/19/21 07:38 07:43 07:48 Temperature Pulse Rate 94 H 99 H 90 Respiratory Rate Blood Pressure O2 Sat by Pulse 98 99 98 Oximetry O2 Sat by Pulse Oximetry [ Bilateral Throughout] 07/19/21 07/19/21 07/19/21 07:53 07:58 08:01 Temperature Pulse Rate 94 H 89 86 Respiratory Rate Blood Pressure 125/70 O2 Sat by Pulse 98 98 Oximetry O2 Sat by Pulse Oximetry [ Bilateral Throughout] 07/19/21 07/19/21 07/19/21 08:03 08:08 08:13 Temperature Pulse Rate 90 90 90 Respiratory Rate Blood Pressure O2 Sat by Pulse 98 98 97 Oximetry O2 Sat by Pulse Oximetry [ Bilateral Throughout] 07/19/21 07/19/21 07/19/21 08:18 08:23 08:28 Temperature Pulse Rate 96 H 89 93 H Respiratory Rate Blood Pressure O2 Sat by Pulse 99 98 99 Oximetry O2 Sat by Pulse Oximetry [ Bilateral Throughout] 07/19/21 07/19/21 07/19/21 08:31 08:33 08:38 Temperature Pulse Rate 90 90 92 H Respiratory Rate Blood Pressure 121/70 O2 Sat by Pulse 98 98 Oximetry O2 Sat by Pulse Oximetry [ Bilateral Throughout] 07/19/21 07/19/21 07/19/21 08:43 08:48 08:53 Temperature Pulse Rate 91 H 90 88 Respiratory Rate Blood Pressure O2 Sat by Pulse 99 99 98 Oximetry O2 Sat by Pulse Oximetry [ Bilateral Throughout] 07/19/21 07/19/21 07/19/21 08:58 09:02 09:03 Temperature Pulse Rate 84 86 85 Respiratory Rate Blood Pressure 125/72 O2 Sat by Pulse 98 98 Oximetry O2 Sat by Pulse Oximetry [ Bilateral Throughout] 07/19/21 07/19/21 07/19/21 09:08 09:13 09:18 Temperature Pulse Rate 82 86 90 Respiratory Rate Blood Pressure O2 Sat by Pulse 98 99 100 Oximetry O2 Sat by Pulse Oximetry [ Bilateral Throughout] 07/19/21 07/19/21 07/19/21 09:23 09:28 09:31 Temperature Pulse Rate 82 86 87 Respiratory Rate Blood Pressure 136/83 O2 Sat by Pulse 99 99 Oximetry O2 Sat by Pulse Oximetry [ Bilateral Throughout] 07/19/21 07/19/21 09:33 10:24 Temperature Pulse Rate 97 H 88 Respiratory Rate Blood Pressure O2 Sat by Pulse 99 98 Oximetry O2 Sat by Pulse Oximetry [ Bilateral Throughout] - Exam Abdomen: Present: normal appearance, soft, normal bowel sounds Uterus: Present: normal FHR: category 1 Uterine Contraction Monitor Mode: External Cervical Dilatation: 3 Cervical Effacement Percentage: 60 station: -4 Uterine Contraction Pattern: Irregular - Labs Labs: Abnormal Labs 07/18/21 07/18/21 22:20 22:20 [place] % (Auto) 9.2 H Sodium 135 L Carbon Dioxide 17 L BUN 5 L Creatinine 0.5 L Glucose 121 H Alkaline Phosphatase 192 H Lactate Dehydrogenase 181 H Albumin 3.6 L Laboratory Results - last 24 hr 07/18/21 07/18/21 07/18/21 22:20 22:20 22:20 WBC 7.2 RBC 3.81 Hgb 10.6 Hct 32.3 MCV 85 MCH 28 MCHC 33 RDW 13.6 Plt Count 279 Lymph % (Auto) 33.0 [place] % (Auto) 9.2 H Eos % (Auto) 0.6 Baso % (Auto) 0.3 Lymph # (Auto) 2.4 [place] # (Auto) 0.7 Eos # (Auto) 0.0 Baso # (Auto) 0.0 Seg Neutrophils % 56.9 Seg Neutrophils # 4.1 Sodium 135 L Potassium 3.6 Chloride 104.1 Carbon Dioxide 17 L Anion Gap 18 BUN 5 L Creatinine 0.5 L Estimated GFR > 60 BUN/Creatinine Ratio 10 Glucose 121 H Uric Acid 4.5 Calcium 8.8 Total Bilirubin 0.20 AST 19 ALT 11 Alkaline Phosphatase 192 H Lactate Dehydrogenase 181 H Total Protein 7.2 Albumin 3.6 L Albumin/Globulin Ratio 1.0 Blood Type O POSITIVE Antibody Screen Negative
[2021-07-19] MEDS ORDERED: SODIUM CHLORIDE 0.9% 1000 ML 1,000 ML ONE (17:14)
[2021-07-19] MEDS: LACTATED RINGERS 1,000 ML IV SCH (20:53)
[2021-07-20] MEDS ORDERED: AMPICILLIN 2 GM in SODIUM CHLORIDE 0.9% 50 ML IV STA (01:41)
[2021-07-20] MEDS ORDERED: AMPICILLIN/NS 2 GM/100 ML 2 GM/100 ML BAG IV ONE ×2 (01:52→02:00)
[2021-07-20] MEDS: AMPICILLIN/NS 1 GM/50 ML 1 GM/50 ML BAG IV SCH ×3 (06:31→23:14)
--- NOTE | 2021-07-20 08:52 | Progress Note ---
Assessment and Plan A: at 37 weerks, 3 days gestation. Preeclampsia without severe features. Obesity. GBS unknown. P: Plan to proceed with Pitocin IOL. AROM when station lower. GBS prophylaxis. Subjective - Subjective Date of service: 07/20/21 Principal diagnosis: at 37 weeks, 3 days gestation; IOL for preeclampsia Interval history: Patient having labor induced due to mild preeclampsia. Patient denies headache. Reports she is feeling contractions but they do not hurt yet. No LOF or VB. Patient reports: movement normal, contractions (intermittent), no new complaints, no loss of fluid, no vaginal bleeding Objective - Vital Signs Vital Signs: Vital Signs - 12hr 07/19/21 07/19/21 07/19/21 20:50 20:55 21:00 Temperature Pulse Rate 90 91 H 91 H Blood Pressure O2 Sat by Pulse 99 99 99 Oximetry 07/19/21 07/19/21 07/19/21 21:28 21:33 21:38 Temperature Pulse Rate 104 H 95 H 89 Blood Pressure O2 Sat by Pulse 99 100 100 Oximetry 07/19/21 07/19/21 07/19/21 21:43 21:45 21:48 Temperature Pulse Rate 86 85 89 Blood Pressure 123/74 O2 Sat by Pulse 99 100 Oximetry 07/19/21 07/19/21 07/19/21 21:53 21:58 22:03 Temperature Pulse Rate 89 90 83 Blood Pressure O2 Sat by Pulse 100 100 99 Oximetry 07/19/21 07/19/21 07/19/21 22:08 22:13 22:18 Temperature Pulse Rate 89 87 97 H Blood Pressure O2 Sat by Pulse 100 100 100 Oximetry 07/19/21 07/19/21 07/19/21 22:23 22:28 22:33 Temperature Pulse Rate 94 H 91 H 91 H Blood Pressure O2 Sat by Pulse 100 99 100 Oximetry 07/19/21 07/19/21 07/19/21 22:38 22:43 22:45 Temperature Pulse Rate 94 H 93 H 97 H Blood Pressure 134/84 O2 Sat by Pulse 100 100 Oximetry 07/19/21 07/19/21 07/19/21 22:48 22:53 22:58 Temperature Pulse Rate 90 94 H 107 H Blood Pressure O2 Sat by Pulse 100 100 99 Oximetry 07/19/21 07/19/21 07/19/21 23:02 23:05 23:08 Temperature Pulse Rate 122 H 188 H Blood Pressure O2 Sat by Pulse 80 L 85 85 Oximetry 07/19/21 07/19/21 07/19/21 23:12 23:13 23:18 Temperature Pulse Rate 74 95 H 59 L Blood Pressure O2 Sat by Pulse 82 L 84 80 L Oximetry 07/19/21 07/19/21 07/19/21 23:23 23:27 23:28 Temperature Pulse Rate 38 L 36 L Blood Pressure O2 Sat by Pulse 81 L 81 L 81 L Oximetry 07/19/21 07/19/21 07/19/21 23:33 23:34 23:38 Temperature Pulse Rate 35 L 65 34 L Blood Pressure O2 Sat by Pulse 81 L 81 L 81 L Oximetry 07/19/21 07/19/21 07/19/21 23:43 23:45 23:48 Temperature Pulse Rate 32 L 90 37 L Blood Pressure 124/59 O2 Sat by Pulse 81 L 81 L Oximetry 07/19/21 07/19/21 07/20/21 23:53 23:58 00:03 Temperature Pulse Rate 34 L 43 L 36 L Blood Pressure O2 Sat by Pulse 80 L 81 L 81 L Oximetry 07/20/21 07/20/21 07/20/21 00:08 00:13 00:18 Temperature Pulse Rate 32 L 28 L 37 L Blood Pressure O2 Sat by Pulse 81 L 81 L 81 L Oximetry 07/20/21 07/20/21 07/20/21 00:23 00:28 00:33 Temperature Pulse Rate 31 L 34 L 34 L Blood Pressure O2 Sat by Pulse 81 L 81 L 81 L Oximetry 07/20/21 07/20/21 07/20/21 00:38 00:43 00:47 Temperature Pulse Rate 38 L 33 L 82 Blood Pressure 117/55 O2 Sat by Pulse 81 L 81 L Oximetry 07/20/21 07/20/21 07/20/21 00:48 00:53 00:54 Temperature Pulse Rate 91 H 69 Blood Pressure O2 Sat by Pulse 75 L 81 L 88 Oximetry 07/20/21 07/20/21 07/20/21 00:58 01:03 01:08 Temperature Pulse Rate 46 L 37 L 36 L Blood Pressure O2 Sat by Pulse 81 L 81 L 81 L Oximetry 07/20/21 07/20/21 07/20/21 01:13 01:16 01:20 Temperature Pulse Rate 42 L 208 H Blood Pressure O2 Sat by Pulse 80 L 84 80 L Oximetry 07/20/21 07/20/21 07/20/21 01:22 01:26 01:27 Temperature Pulse Rate 58 L 60 60 Blood Pressure O2 Sat by Pulse 82 L 86 87 Oximetry 07/20/21 07/20/21 07/20/21 01:31 01:34 01:36 Temperature Pulse Rate 58 L 65 Blood Pressure O2 Sat by Pulse 89 91 91 Oximetry 07/20/21 07/20/21 07/20/21 01:39 01:42 01:45 Temperature Pulse Rate 96 H 82 Blood Pressure 112/58 O2 Sat by Pulse 94 86 Oximetry 07/20/21 07/20/21 07/20/21 01:46 01:47 01:53 Temperature Pulse Rate Blood Pressure O2 Sat by Pulse 87 90 90 Oximetry 07/20/21 07/20/21 07/20/21 02:53 06:30 06:45 Temperature 98.3 F Pulse Rate 88 88 Blood Pressure 131/68 120/62 O2 Sat by Pulse Oximetry 07/20/21 07:46 Temperature Pulse Rate 86 Blood Pressure 120/62 O2 Sat by Pulse Oximetry - Exam Abdomen: Present: normal appearance, soft. Absent: distention, tenderness, guarding, rigidity Uterus: Present: fundal height above umbilicus FHR: category 1 Uterine Contraction Monitor Mode: External Cervical Dilatation: 3.5 Cervical Effacement Percentage: 70 station: -4 Uterine Contraction Pattern: Irregular Uterine Contraction Intensity: Mild - Labs Labs: Abnormal Labs 07/18/21 07/18/21 22:20 22:20 [place] % (Auto) 9.2 H Sodium 135 L Carbon Dioxide 17 L BUN 5 L Creatinine 0.5 L Glucose 121 H Alkaline Phosphatase 192 H Lactate Dehydrogenase 181 H Albumin 3.6 L Laboratory Results - last 24 hr 07/19/21 Unknown Coronavirus (PCR) Negative
[2021-07-20] MEDS: LACTATED RINGERS 1,000 ML IV SCH ×2 (16:00→22:35)
[2021-07-20] MEDS ORDERED: ePHEDrine SULFATE 50 MG/1 ML INJ IV PRN (21:35)
[2021-07-20] MEDS ORDERED: NALOXONE 2 MG/2 ML INJ IV PRN (21:35)
--- NOTE | 2021-07-20 21:35 | Anesthesia Consultation ---
Anesthesia Consult and Med Hx Date of service: 07/20/21 - Airway Anesthetic Teeth Evaluation: Poor ROM Head & Neck: Adequate Mental/Hyoid Distance: Adequate Mallampati Class: Class II Intubation Access Assessment: Probably Good - Pulmonary Exam CTA: Yes - Pre-Operative Health Status ASA Pre-Surgery Classification: ASA3 Proposed Anesthetic Plan: Epidural - Pulmonary Hx Smoking: No Hx Asthma: No Hx Respiratory Symptoms: No SOB: No COPD: No Home Oxygen Therapy: No Hx Pneumonia: No Hx Sleep Apnea: No - Cardiovascular System Hx Hypertension: Yes (elevated blood pressures/mild preeclampsia.) Hx Coronary Artery Disease: No Hx Heart Attack/AMI: No Hx Angina: No Hx Percutaneous Transluminal Coronary Angioplasty (PTCA): No Hx Cardia Arrhythmia: No Hx Pacemaker: No Hx Internal Defibrillator: No Hx Valvular Heart Disease: No Hx Heart Murmur: No Hx Peripheral Vascular Disease: No - Central Nervous System Hx Neuromuscular Disorder: No Hx Seizures: No CVA: No Hx Back Pain: Yes Hx Psychiatric Problems: No - Gastrointestinal Hx Ulcer: No Hx Gastroesophageal Reflux Disease: No - Endocrine Hx Renal Disease: No Hx End Stage Renal Disease: No Hx Cirrhosis: No Hx Liver Disease: No Hx Insulin Dependent Diabetes: No Hx Non-Insulin Dependent Diabetes: No Hx Hypothyroidism: No Hx Hyperthyroidism: No - Hematic Hx Anemia: No Hx Sickle Cell Disease: No - Other Systems Hx Alcohol Use: Yes (OCCASSIONALLY) Hx Substance Use: No Hx Cancer: No Hx Obesity: Yes
[2021-07-20] MEDS ORDERED: fentaNYL-BUPIV 2 MCG/ML-0.125% 200 MCG/100 ML BAG EPIDURAL SCH (22:00)
--- NOTE | 2021-07-20 22:24 | Progress Note ---
Labor Epidural - Labor Epidural Start Time: 21:45 Stop Time: 21:59 Performed by:: JUANJO OLSON Procedure: Patient is requesting a laboring epidural for laboring pain. Patient IDed, H&P reviewed, all questions and concerns were answered, and consent was signed. Timeout was performed at bedside. Patient in sitting position. Sterile prep and drape was performed. [3] ml of 1% lidocaine skin wheal at L[3]- L [4]. 18- gauge Tuohy epidural needle was advanced to loss of resistance with air technique to 8cm. Negative CSF negative blood via Tuohy needle. #25g Spinal needle clear, free flowing CSF, Pecedex 10 mcg. Epidural catheter advanced to [12] centimeters. [negative] Aspiration [negative] test dose. Sterile dressing applied. Patient tolerated procedure.
[2021-07-20] MEDS ORDERED: WITCH HAZEL/ GLYCERIN PAD TP PRN (23:58)
[2021-07-20] MEDS ORDERED: BENZOCAINE/MENTHOL 20/0.5% TOP SPRAY 56 GM TP PRN (23:58)
[2021-07-20] MEDS ORDERED: LANOLIN/ZINC/DIMETHICONE (LANSINOH) 7 GM TP PRN ×2 (23:58)
[2021-07-20] MEDS ORDERED: MAGNESIUM HYDROXIDE (MOM) ORAL LIQD UDC PO PRN (23:58)
[2021-07-20] MEDS ORDERED: HYDROcodone/ACETAMINOPHEN 5-325 MG TAB PO PRN (23:58)
--- NOTE | 2021-07-21 00:14 | Procedure Note ---
OB Delivery Note - Delivery Date of Delivery: 07/20/21 Surgeon: MAYNOR URBINA Estimated blood loss: 300cc - Vaginal Delivery presentation: vertex Delivery position: OA Intrapartum events: none, preeclampsia Delivery induction: oxytocin Delivery augmentation: rupture of membranes Delivery monitor: external FHT, external uterine Route of delivery: Delivery placenta: manual Delivery cord: 3 umbilical vessels Episiotomy: none Delivery laceration: none Delivery comments: Spontaneous vaginal delivery at 23:33 of liveborn male weighing 6. lb. 10 oz. over intact perineum with apgars of 8/9. was atraumatic; no nuchal cord. Baby placed skin to skin with mom right after . Baby was suctioned with bulb syringe and dried with warm blankets. Spontaneous cry and respirations. 3 vessel cord double clamped and cut. 3 vessel cord double clamped and cut. Baby taken to radiant warmer for further suctioning. Cord blood obtained. Manual removal of intact placenta and membranes. EBL 300 cc. Pitocin IM (IV had come out) and cytotec 800 micrograms given rectally to slow bleedng. Fundus firm and midline. No lacerations noted. Vaginal sweep negative. Sponge count correct. Mother and baby stable in birthing room.
[2021-07-21] MEDS ORDERED: AMPICILLIN/NS 2 GM/100 ML 2 GM/100 ML BAG IV SCH (04:00)
[2021-07-21] MEDS ORDERED: LACTATED RINGERS 1,000 ML IV SCH (05:30)
[2021-07-21] MEDS ORDERED: GENTAMICIN/NS 100 MG/100 ML 100 MG/100 ML BAG IV SCH (06:00)
[2021-07-21] MEDS: IBUPROFEN 600 MG TAB PO SCH ×4 (06:24→19:38)
--- NOTE | 2021-07-21 07:44 | Event Note ---
Date: 07/21/21 Was planning to continue Ampicillin and Gentamicin for 24 hours. Patient refused any more antibiotics. Orders given to discontinue antibiotics.
--- NOTE | 2021-07-21 08:34 | Post Anesthesia Evaluation ---
- Post Anesthesia Evaluation Patient Participated: Yes Airway Patent: Yes Stable Respiratory Function: Yes Nausea/Vomiting: No Temp > 96.8F: Yes Pain Manageable: Yes Adequeate Hydration: Yes Anesthesia Complications: No Block Receding Appropriately: Yes Patient on Ventilator: No
[2021-07-21] MEDS: DOCUSATE SODIUM 100 MG CAP PO SCH ×2 (09:08→22:06)
[2021-07-21 09:46] LABS: Basophils % (Auto) 0.2 % (0.0-1.8); Eosinophils % (Auto) 0.1 % (0.0-4.3); Hemoglobin 10.1 gm/dl (10.1-14.3); Lymphocytes # (Auto) 2.4 K/mm3 (1.2-5.4); Lymphocytes % (Auto) 19.9 % (13.4-35.0); Mean Corpuscular HGB Conc 34 % (30-34); Mean Corpuscular Volume 83 fl (79-97); Monocytes # (Auto) 1.2 K/mm3 (0.0-0.8); Platelet Count 248 K/mm3 (140-440); Red Blood Count 3.61 M/mm3 (3.65-5.03); Red Cell Distribution Width 13.5 % (13.2-15.2)
--- NOTE | 2021-07-21 11:47 | Progress Note ---
Assessment and Plan PPD#1 doing fair 1. Routine PP Care and check CBC later today Plan of care discussed and pt agrees; all questions encouraged and answered Subjective Principal diagnosis: PPD#1 Interval history: Pt drowsy but arrousable. Vag bleed like a period. Denies pain. Pt plans to breast and bottle feed. Objective - Constitutional Vitals: Vital Signs - 12hr 07/20/21 07/20/21 07/20/21 23:45 23:47 23:52 Temperature Pulse Rate 100 H 107 H 104 H Respiratory Rate Blood Pressure 117/57 O2 Sat by Pulse 100 99 Oximetry O2 Sat by Pulse Oximetry [ Bilateral Throughout] 07/20/21 07/21/21 07/21/21 23:57 00:02 00:07 Temperature Pulse Rate 105 H 100 H 98 H Respiratory Rate Blood Pressure O2 Sat by Pulse 100 99 98 Oximetry O2 Sat by Pulse Oximetry [ Bilateral Throughout] 07/21/21 07/21/21 07/21/21 00:12 00:17 00:22 Temperature Pulse Rate 101 H 94 H 97 H Respiratory Rate Blood Pressure O2 Sat by Pulse 99 99 99 Oximetry O2 Sat by Pulse Oximetry [ Bilateral Throughout] 07/21/21 07/21/21 07/21/21 00:27 00:32 00:37 Temperature Pulse Rate 96 H 92 H 90 Respiratory Rate Blood Pressure O2 Sat by Pulse 99 99 99 Oximetry O2 Sat by Pulse Oximetry [ Bilateral Throughout] 07/21/21 07/21/21 07/21/21 00:42 00:45 00:47 Temperature Pulse Rate 103 H 99 H 100 H Respiratory Rate Blood Pressure 139/83 O2 Sat by Pulse 99 99 Oximetry O2 Sat by Pulse Oximetry [ Bilateral Throughout] 07/21/21 07/21/21 07/21/21 00:52 00:57 01:02 Temperature Pulse Rate 93 H 101 H 96 H Respiratory Rate Blood Pressure O2 Sat by Pulse 99 99 98 Oximetry O2 Sat by Pulse Oximetry [ Bilateral Throughout] 07/21/21 07/21/21 07/21/21 01:07 01:10 01:11 Temperature 100.1 F H Pulse Rate 96 H 100 H Respiratory Rate Blood Pressure 142/79 O2 Sat by Pulse 98 Oximetry O2 Sat by Pulse Oximetry [ Bilateral Throughout] 07/21/21 07/21/21 07/21/21 01:12 01:17 01:22 Temperature Pulse Rate 98 H 103 H 106 H Respiratory Rate Blood Pressure O2 Sat by Pulse 98 99 99 Oximetry O2 Sat by Pulse Oximetry [ Bilateral Throughout] 07/21/21 07/21/21 07/21/21 01:27 01:30 01:32 Temperature 99.1 F Pulse Rate 97 H 95 H Respiratory Rate Blood Pressure O2 Sat by Pulse 99 99 Oximetry O2 Sat by Pulse Oximetry [ Bilateral Throughout] 07/21/21 07/21/21 07/21/21 01:37 01:42 01:47 Temperature Pulse Rate 96 H 107 H 95 H Respiratory Rate Blood Pressure O2 Sat by Pulse 99 99 98 Oximetry O2 Sat by Pulse Oximetry [ Bilateral Throughout] 07/21/21 07/21/21 07/21/21 01:52 01:57 02:00 Temperature 100.1 F H Pulse Rate 98 H 102 H Respiratory Rate Blood Pressure O2 Sat by Pulse 99 98 Oximetry O2 Sat by Pulse Oximetry [ Bilateral Throughout] 07/21/21 07/21/21 07/21/21 02:02 02:07 02:12 Temperature Pulse Rate 99 H 94 H 104 H Respiratory Rate Blood Pressure O2 Sat by Pulse 99 99 98 Oximetry O2 Sat by Pulse Oximetry [ Bilateral Throughout] 07/21/21 07/21/21 07/21/21 02:17 02:22 03:15 Temperature 98.6 F Pulse Rate 98 H 101 H 103 H Respiratory 18 Rate Blood Pressure 144/90 O2 Sat by Pulse 99 99 98 Oximetry O2 Sat by Pulse Oximetry [ Bilateral Throughout] 07/21/21 07/21/21 07/21/21 03:28 06:25 07:24 Temperature Pulse Rate Respiratory 18 18 Rate Blood Pressure O2 Sat by Pulse Oximetry O2 Sat by Pulse 99 Oximetry [ Bilateral Throughout] 07/21/21 08:21 Temperature 98.3 F Pulse Rate 84 Respiratory 18 Rate Blood Pressure 138/87 O2 Sat by Pulse 99 Oximetry O2 Sat by Pulse Oximetry [ Bilateral Throughout] General appearance: Present: no acute distress - Respiratory Respiratory effort: normal - Breasts Breasts: normal - Cardiovascular Rhythm: regular Extremities: No edema - Gastrointestinal General gastrointestinal: Present: non-tender - Genitourinary Female genitourinary: other (Fundus firm, non-tender 1cm below umbilicus) - Psychiatric Psychiatric: appropriate mood/affect - Labs CBC & Chem 7: 07/21/21 09:06 07/18/21 22:20 Labs: Abnormal lab results 07/21/21 Range/Units 09:06 WBC 12.1 H (4.5-11.0) K/mm3 RBC 3.61 L (3.65-5.03) M/mm3 Hct 30.0 L (30.3-42.9) % [place] % (Auto) 10.0 H (0.0-7.3) % Gordon # (Auto) 1.2 H (0.0-0.8) K/mm3 Seg Neutrophils # 8.5 H (1.8-7.7) K/mm3 Medications & Allergies - Medications Allergies/Adverse Reactions: Allergies No Known Allergies Allergy (Verified 07/18/21 21:34) Home Medications: Home Medications Medication Instructions Recorded Confirmed Last Taken Type No Known Home Medications [No 07/21/21 07/21/21 Unknown History Reported Home Medications] Active Medications: Generic Name Dose Route Start Last Admin Trade Name Freq PRN Reason Stop Dose Admin Hydrocodone Bitart/Acetaminophen 2 each 07/20/21 23:58 Hydrocodone/Acetaminophen 5-325 Mg Tab PO Q6H PRN Pain, Moderate (4-6) Benzocaine/Menthol 1 spray 07/20/21 23:58 Benzocaine/Menthol 20/0.5% [place] 56 Gm TP PRN PRN Episiotomy Pain Docusate Sodium 100 mg 07/21/21 10:00 07/21/21 09:08 Docusate Sodium 100 Mg Cap PO 100 mg BID MARIANELA Administration Lactated Ringer's 1,000 mls @ 50 mls/hr 07/21/21 05:30 Lactated Ringers IV DIRECT MARIANELA Ibuprofen 600 mg 07/20/21 23:45 07/21/21 06:25 Ibuprofen 600 Mg Tab PO 600 mg Q6HR MARIANELA Administration Magnesium Hydroxide 30 ml 07/20/21 23:58 Magnesium Hydroxide (Mom) Oral Liqd Udc PO HS PRN Constipation Multi-Ingredient Ointment 1 applic 07/20/21 23:58 Lanolin/Zinc/Dimethicone (Lansinoh) 7 Gm TP PRN PRN Sore Nipples Sodium Chloride 10 ml 07/20/21 23:45 07/21/21 04:30 Sodium Chloride 0.9% 10 Ml Flush Syringe IV 07/21/21 23:44 10 ml PRN NR Administration [place]/Glycerin 1 each 07/20/21 23:58 [place]/ Glycerin Pad TP PRN PRN Hemorrhoid/cleansing/soothing
[2021-07-21 13:01] LABS: Hematocrit 32.9 % (30.3-42.9); Hemoglobin 10.6 gm/dl (10.1-14.3)
[2021-07-22] MEDS: IBUPROFEN 600 MG TAB PO SCH (04:54)
--- NOTE | 2021-07-22 09:44 | Discharge Summary ---
Providers - Providers Date of Admission: 07/18/21 22:55 Date of discharge: 07/22/21 Attending physician: NINO SHERWOOD JR, MD Primary care physician: NINO SHERWOOD JR, MD Hospitalization Reason for admission: induction of labor, IUP at term Delivery: Episiotomy: none Laceration: none Other procedures: none complications: none Discharge diagnosis: IUP at term delivered Fisher baby: male Hospital course: Pt was admitted to [facility] for an IOL r/t mild preeclampsia. She had a w/o pp complications. See H&P, delivery summary, and pp notes. Condition at discharge: Stable Disposition: 01 HOME / SELF CARE / HOMELESS Plan - Discharge Medications Prescriptions: Ibuprofen [Motrin 600 MG tab] 600 mg PO Q6HR PRN #30 tablet PRN Reason: Menstrual Cramps - Provider Discharge Summary Activity: routine, no sex for 6 weeks, no heavy lifting 4 weeks, no strenuous exercise Diet: other (low Na diet) Instructions: other (Pt will monitor her b/p and alert office if b/p > 140/90 and/or if s&s of preeclampsia exhibits.) Additional instructions: [] Smoking cessation referral if applicable(refer to patient education folder for contact #) [] Refer to [facility] Booklet Call your doctor immediately for: * Fever > 100.5 * Heavy vaginal bleeding ( >1 pad per hour) * Severe persistent headache * Shortness of breath * Reddened, hot, painful area to leg or breast * Drainage or odor from incision. * Keep incision clean and dry at all times and follow doctor's instructions regarding bathing/showering - Follow up plan Follow up: NINO SHERWOOD JR, MD [Primary Care Provider] - 6 Weeks
[2021-07-22 09:53] VITALS: BP 132/79
[2021-07-22] MEDS: DOCUSATE SODIUM 100 MG CAP PO SCH (10:55)
== END 2021-07-22 13:45 | disposition home or self-care (01) | DRG 775 ==
LOC: TRG 20:42 → LD 20:49 → TRG 23:50 → OB 07-21 02:53
PROVIDERS: ADMIT Obstetrics & Gynecology; ATTEND Obstetrics & Gynecology
PROC: 10E0XZZ Delivery of Products of Conception, External Approach (ICD-10-PCS; principal; 2021-07-20)
PROC: 3E033VJ Introduction of Other Hormone into Peripheral Vein, Percutaneous Approach (ICD-10-PCS; 2021-07-20)
PROC: 3E0R3BZ Introduction of Anesthetic Agent into Spinal Canal, Percutaneous Approach (ICD-10-PCS; 2021-07-20)
PROC: 00HU33Z Insertion of Infusion Device into Spinal Canal, Percutaneous Approach (ICD-10-PCS; 2021-07-20)
DX: O14.04 Mild to moderate pre-eclampsia, complicating childbirth (principal); Z3A.37 37 weeks gestation of pregnancy; Z37.0 Single live birth; Z20.822 Contact with and (suspected) exposure to COVID-19; O99.214 Obesity complicating childbirth
CPT/HCPCS: 36415; 59025; 80053; 83615; 84550; 85014; 85018; 85025; 86803; 86850; 86900; 86901; 87806; 96360; 96365; 96372; 99211; G0378; J3490; G0463; J0290; J1580; J2590; J3010; J7120; U0003